=== PATIENT | female | born 1995 | race Caucasian/White ===

== ENCOUNTER 2017-10-02 14:46 | Emergency (ER) | payer BC ==
--- NOTE | 2017-10-02 15:18 | EDM.PDOC ---
ED HPI GENERAL MEDICAL PROBLEM - General Chief Complaint: CLIENT STRATEGIST Problem Stated Complaint: BLEEDING WITH Time Seen by Provider: 10/02/17 15:01 - History of Present Illness INITIAL COMMENTS - FREE TEXT/NARRATIVE: HISTORY AND PHYSICAL: History of present illness: The patient is a 21-year-old female who presents with a ten-day history of cramping and intermittent vaginal bleeding which she thought was a period that was coming back early, but she took a home test today and it was positive and she is concerned. The patient is never been before and her last regular period was September 03, which if she is , would put her at 4 weeks gestational age. She has had ovarian cysts in the past but never had any or GI surgical history. Patient has been having unprotected sex. Patient says she has felt run down for the last 4 weeks and has intermittent nausea but no vomiting or diarrhea. No upper abdominal pain and her cramping does not localize right or left. She says she does get painful heavy periods, so initially she was not concerned about these symptoms. The patient has been urinating normally and has no flank pain and has been eating and drinking normally. Review of systems: As per history of present illness and below otherwise all systems reviewed and negative. Past medical history: As per history of present illness and as reviewed below otherwise noncontributory. Surgical history: As per history of present illness and as reviewed below otherwise noncontributory. Social history: No reported history of drug or alcohol abuse. Family history: As per history of present illness and as reviewed below otherwise noncontributory. Physical exam: : Well-developed, well-nourished female who is nontoxic and vital signs are noted by me HEENT: Atraumatic, normocephalic, negative for conjunctival pallor or scleral icterus, mucous membranes moist, throat clear, neck supple, nontender, trachea midline. Lungs: Clear to auscultation, breath sounds equal bilaterally, chest nontender. Heart: S1S2, regular, negative for clicks, rubs, or JVD. Abdomen: Soft, nondistended, nontender. Negative for masses or hepatosplenomegaly. NABS Pelvis: Stable nontender. Genitourinary: Deferred. Rectal: Deferred. Extremities: Atraumatic, negative for cords or calf pain. Neurovascular unremarkable. Neuro: Awake, alert, oriented. Cranial nerves II through XII unremarkable. Cerebellum unremarkable. Motor and sensory unremarkable throughout. Exam nonfocal. Diagnostics: CBC serum quantitative hCG UA ABO Rh pelvic ultrasound progesterone level Therapeutics: The patient is aware that we are awaiting ultrasound results and when I spoke with her about vaginal bleeding since she has been here and prior to that. She says she is not having anything but a teeny bit of brown blood on her tampon. I did discuss with her tampons would no longer be acceptable going forward. as She is . 182: Case was discussed with Dr. Mae as the patient has an appointment tomorrow at the clinic at 1245. She agrees with close follow-up in the clinic and that the ultrasound findings may may just indicate fluid from ovulation rather than blood. She is aware of all lab tests and she is also aware that the patient is having no bleeding currently and no discomfort. He requested that I added a progesterone level to the patient's lab so that she will have that tomorrow for her appointment. I strongly advised the patient that if she starts having any pain, bleeding, or any concerns that she return to the ER. She was advised to keep her appointment tomorrow at 1245 and we discussed the testing results and she states understanding of the need to follow the serum quantitative hCG and ultrasound with her provider at [facility] until this declares itself. Impression: threatened , early Definitive disposition and diagnosis as appropriate pending reevaluation and review of above. - Related Data Allergies Allergy/AdvReac Type Severity Reaction Status Date / Time No Known Allergies Allergy Verified 10/02/17 15:05 Home Meds: Home Meds . [No Known Home Meds] 10/02/17 [History] Past Medical History - Past Health History Medical/Surgical History: Denies Medical/Surgical History - Infectious Disease History Infectious Disease History: Reports: Chicken Pox - Past Surgical History Musculoskeletal Surgical History: Reports: Other (See Below) Other Musculoskeletal Surgeries/Procedures:: Elbow Social & Family History - Family History Family Medical History: Unobtainable - Tobacco Use Smoking Status *Q: Never Smoker Second Hand Smoke Exposure: No - Caffeine Use Caffeine Use: Reports: Coffee, Tea - Recreational Drug Use Recreational Drug Use: No ED ROS GENERAL - Review of Systems Review Of Systems: ROS reveals no pertinent complaints other than HPI. ED EXAM, GENERAL - Physical Exam Exam: See Below (see Dictation) Course - Vital Signs Last Recorded V/S: Last Vital Signs Temp 36.4 C 10/02/17 15:02 Pulse 91 10/02/17 15:02 Resp 16 10/02/17 15:02 BP 115/75 10/02/17 15:02 Pulse Ox 99 10/02/17 15:02 - Orders/Labs/Meds Orders: Active Orders 24 hr Category Date Time Status OB 1st Tri Sgl 1st Gest [US] Stat Exams 10/02/17 17:11 Taken PROGESTERONE [CHEM] Stat Lab 10/02/17 18:32 Ordered UA W/MICROSCOPIC [URIN] Stat Lab 10/02/17 16:15 Ordered Labs: Laboratory Tests 10/02/17 10/02/17 10/02/17 Range/Units 15:25 15:25 15:25 WBC 8.51 (4.0-11.0) K/uL RBC 4.32 (4.30-5.90) M/uL Hgb 13.7 (12.0-16.0) g/dL Hct 39.8 (36.0-46.0) % MCV 92.1 (80.0-98.0) fL MCH 31.7 (27.0-32.0) pg MCHC 34.4 (31.0-37.0) g/dL RDW Std Deviation 42.9 (28.0-62.0) fl RDW Coeff of Anatoliy 13 (11.0-15.0) % Plt Count 219 (150-400) K/uL MPV 9.90 (7.40-12.00) fL Neut % (Auto) 60.1 (48.0-80.0) % Lymph % (Auto) 24.4 (16.0-40.0) % [place] % (Auto) 8.6 (0.0-15.0) % Eos % (Auto) 6.3 (0.0-7.0) % Baso % (Auto) 0.6 (0.0-1.5) % Neut # (Auto) 5.1 (1.4-5.7) K/uL Lymph # (Auto) 2.1 (0.6-2.4) K/uL [place] # (Auto) 0.7 (0.0-0.8) K/uL Eos # (Auto) 0.5 (0.0-0.7) K/uL Baso # (Auto) 0.1 (0.0-0.1) K/uL Nucleated RBC % 0.0 /100WBC Nucleated RBCs # 0 K/uL HCG, Quant 1184.0 mIU/mL Urine Color Urine Appearance Urine pH (5.0-8.0) Ur Specific [place] (1.001-1.035) Urine Protein (NEGATIVE) mg/dL Urine Glucose (UA) (NEGATIVE) mg/dL Urine Ketones (NEGATIVE) mg/dL Urine Occult Blood (NEGATIVE) Urine Nitrite (NEGATIVE) Urine Bilirubin (NEGATIVE) Urine Urobilinogen (<2.0) EU/dL Ur Leukocyte Esterase (NEGATIVE) Urine RBC (0-2/HPF) Urine WBC (0-5/HPF) Ur Epithelial Cells (NONE-FEW) Urine Bacteria (NEGATIVE) Blood Type B POSITIVE 10/02/17 Range/Units 16:15 WBC (4.0-11.0) K/uL RBC (4.30-5.90) M/uL Hgb (12.0-16.0) g/dL Hct (36.0-46.0) % MCV (80.0-98.0) fL MCH (27.0-32.0) pg MCHC (31.0-37.0) g/dL RDW Std Deviation (28.0-62.0) fl RDW Coeff of Anatoliy (11.0-15.0) % Plt Count (150-400) K/uL MPV (7.40-12.00) fL Neut % (Auto) (48.0-80.0) % Lymph % (Auto) (16.0-40.0) % [place] % (Auto) (0.0-15.0) % Eos % (Auto) (0.0-7.0) % Baso % (Auto) (0.0-1.5) % Neut # (Auto) (1.4-5.7) K/uL Lymph # (Auto) (0.6-2.4) K/uL [place] # (Auto) (0.0-0.8) K/uL Eos # (Auto) (0.0-0.7) K/uL Baso # (Auto) (0.0-0.1) K/uL Nucleated RBC % /100WBC Nucleated RBCs # K/uL HCG, Quant mIU/mL Urine Color YELLOW Urine Appearance CLEAR Urine pH 7.0 (5.0-8.0) Ur Specific [place] <= 1.005 (1.001-1.035) Urine Protein NEGATIVE (NEGATIVE) mg/dL Urine Glucose (UA) NEGATIVE (NEGATIVE) mg/dL Urine Ketones NEGATIVE (NEGATIVE) mg/dL Urine Occult Blood NEGATIVE (NEGATIVE) Urine Nitrite NEGATIVE (NEGATIVE) Urine Bilirubin NEGATIVE (NEGATIVE) Urine Urobilinogen 0.2 (<2.0) EU/dL Ur Leukocyte Esterase NEGATIVE (NEGATIVE) Urine RBC NONE SEEN (0-2/HPF) Urine WBC 0-1 (0-5/HPF) Ur Epithelial Cells RARE (NONE-FEW) Urine Bacteria RARE (NEGATIVE) Blood Type Departure - Departure Time of Disposition: 18:40 Disposition: Home, Self-Care 01 Condition: Good Clinical Impression: Threatened - Discharge Information Referrals: PCP,None [Primary Care Provider] - Forms: ED Department Discharge Additional Instructions: The following information is given to patients seen in the emergency department who are being discharged to home. This information is to outline your options for follow-up care. We provide all patients seen in our emergency department with a follow-up referral. The need for follow-up, as well as the timing and circumstances, are variable depending upon the specifics of your emergency department visit. If you don't have a primary care physician on staff, we will provide you with a referral. We always advise you to contact your personal physician following an emergency department visit to inform them of the circumstance of the visit and for follow-up with them and/or the need for any referrals to a consulting specialist. The emergency department will also refer you to a specialist when appropriate. This referral assures that you have the opportunity for followup care with a specialist. All of these measure are taken in an effort to provide you with optimal care, which includes your followup. Under all circumstances we always encourage you to contact your private physician who remains a resource for coordinating your care. When calling for followup care, please make the office aware that this follow-up is from your recent emergency room visit. If for any reason you are refused follow-up, please contact the emergency department at and ask to speak to the emergency department charge nurse. [facility] [address] [place] [id number] Push hydration and rest as much as possible. Nothing in vagina and strict pelvic rest as we discussed until you are cleared by the OB MG. Please keep your appointment tomorrow in the clinic at 1245 and return to ER as needed and as we discussed - My Orders Last 24 Hours: My Active Orders 10/02/17 16:15 UA W/MICROSCOPIC [URIN] Stat 10/02/17 17:11 OB 1st Tri Sgl 1st Gest [US] Stat 10/02/17 18:32 PROGESTERONE [CHEM] Stat - Assessment/Plan Last 24 Hours: My Active Orders 10/02/17 16:15 UA W/MICROSCOPIC [URIN] Stat 10/02/17 17:11 OB 1st Tri Sgl 1st Gest [US] Stat 10/02/17 18:32 PROGESTERONE [CHEM] Stat
--- NOTE | 2017-10-03 13:32 | US ---
EXAM DATE: 10/02/17 PATIENT'S AGE: 21 Patient: AMARI QUINTANA Facility: [place], [place] Site . Site : 1995 Study: US OB Pelvis [id number] 5:43:46 PM Ordering Physician: Clinton Paz Final Report: INDICATION: Positive test with abdominal pain and vaginal bleeding TECHNIQUE: Ultrasound OB pelvis transvaginal. Real-time griffith-scale imaging of the pelvis was performed. COMPARISON: None FINDINGS: Uterus and endometrium are unremarkable. No sign of intrauterine . No ovarian or adnexal mass. However, there is a moderate amount of free fluid which is relatively dense suggesting the possibility of blood products. IMPRESSION: No intrauterine or ectopic visualized. However, there is a moderate amount of free fluid which appears relatively dense suggesting the possibility of blood products. Close observation and possible follow-up ultrasound should be considered if there is ongoing concern for a ruptured ectopic . Remainder of the exam is unremarkable. Dictated by Danny Moreno MD @ Oct 02 2017 6:08PM (Electronic Signature) Report Signed by Proxy. GENA
== END 2017-10-02 18:50 | disposition home or self-care (01) ==
LOC: MW.ED 14:46
DX: O20.0 Threatened abortion (principal)
CPT/HCPCS: 36415; 76801; 76801-26; 81001; 84144; 84702; 85025; 86900; 86901; 99283; 99284-25

== ENCOUNTER 2023-10-04 03:07 | Inpatient (IN) | payer BC ==
[2023-10-04] MEDS: Acetaminophen 500 MG Tab PO ONE (05:34)
[2023-10-04] MEDS ORDERED: Carboprost Tromethamine 250 MCG/1 mL Vial IM PRN (09:57)
[2023-10-04] MEDS ORDERED: Acetaminophen 325 MG Tab PO PRN (09:57)
[2023-10-04] MEDS ORDERED: Sodium Chloride 0.9% 20 ML SDV IV PRN (09:57)
[2023-10-04] MEDS ORDERED: Sodium Chloride 0.9% 10 ML Syringe FLUSH PRN (09:57)
[2023-10-04] MEDS ORDERED: Water For Irrigation,Sterile 1,000 ML Container IRR PRN (09:57)
[2023-10-04] MEDS ORDERED: Ondansetron 4 MG Tab.DIS PO PRN (09:57)
[2023-10-04] MEDS ORDERED: Sodium Chloride 0.9% 2.5 ML Syringe FLUSH PRN (09:57)
[2023-10-04] MEDS ORDERED: Tranexamic Acid IN NACL,ISO-OS 1,000 MG in Premix Bag 1 BAG IV PRN (09:57)
[2023-10-04] MEDS ORDERED: Lidocaine 1% 50 ML MDV INJECT PRN (09:57)
[2023-10-04] MEDS ORDERED: Aluminum Hydroxide/Magnesium Hydroxide/Simethicone XS Susp 30 ML Cup PO PRN (09:57)
[2023-10-04] MEDS ORDERED: Oxytocin/0.9 % Sodium Chloride 30 UNIT/500 ML BAG IV SCH (10:00)
[2023-10-04] MEDS ORDERED: Naloxone 0.4 MG/ML SDV IVPUSH PRN (10:07)
[2023-10-04] MEDS ORDERED: Terbutaline 1 MG/ML SDV SUBCUT PRN (10:16)
[2023-10-04] MEDS: hydrOXYzine HCl 25 MG Tab PO PRN (10:59)
[2023-10-04] MEDS: Misoprostol 25 MCG (1/4 of 100 MCG) Tab PO PRN ×2 (11:01→14:55)
[2023-10-04] MEDS: Morphine 4 MG/ML Syringe IM ONE (11:11)
[2023-10-04 11:33] LABS: HEMATOCRIT 36.8 % (37.0-47.0); MEAN CORPUSCULAR HGB CONC 35.3 g/dL (32.0-36.0); MEAN CORPUSCULAR VOLUME 90.6 fL (83.0-99.0); MEAN PLATELET VOLUME 10.2 fL (9.4-12.3); PLATELET COUNT,PLT 195 K/uL (150-400); RED BLOOD CELL COUNT 4.06 M/uL (4.10-5.30); WHITE BLOOD CELL COUNT,WBC 9.79 K/uL (3.9-11.3)
[2023-10-04] MEDS: Misoprostol 25 MCG (1/4 of 100 MCG) Tab PO ONE (15:38)
[2023-10-04] MEDS ORDERED: Morphine 10 MG/ML SDV IM ONE (16:30)
[2023-10-04] MEDS: Morphine 10 MG/ML SDV IM ONE (16:48)
[2023-10-04] MEDS: Misoprostol 50 MCG (1/2 of 100 MCG) Tab PO PRN (20:02)
[2023-10-04] MEDS: Morphine 10 MG/ML SDV IM PRN (22:01)
[2023-10-05] MEDS: Lactated Ringers 1,000 ML IV SCH (00:13)
[2023-10-05] MEDS ORDERED: Ropivacaine HCl/PF 200 ML ONE (00:23)
[2023-10-05] MEDS ORDERED: Phenylephrine HCl In 0.9% NaCl 1 MG/10 ML Syringe ONE (00:23)
[2023-10-05] MEDS ORDERED: Bupivacaine 0.5% 10 ML SDV ONE (00:23)
[2023-10-05] MEDS: Ropivacaine HCl/PF 400 MG in Premix Bag 1 BAG EPIDUR SCH (00:36)
[2023-10-05] MEDS ORDERED: Phenylephrine HCl In 0.9% NaCl 1 MG/10 ML Syringe IVPUSH PRN (00:44)
[2023-10-05] MEDS ORDERED: ePHEDrine 50 MG/ML SDV IVPUSH PRN ×2 (00:44)
[2023-10-05] MEDS: Oxytocin/0.9 % Sodium Chloride 30 UNIT/500 ML BAG IV SCH (04:08)
[2023-10-05] MEDS: FLUoxetine 20 MG Cap PO SCH (09:09)
[2023-10-05] MEDS: Methylergonovine 0.2 MG/1 ML Amp IM PRN (10:49)
[2023-10-05] MEDS: Misoprostol 200 MCG Tab PO PRN (10:51)
[2023-10-05] MEDS ORDERED: Sodium Chloride 0.9% 2.5 ML Syringe FLUSH PRN (11:04)
[2023-10-05] MEDS ORDERED: Sodium Chloride 0.9% 10 ML Syringe FLUSH PRN (11:04)
[2023-10-05] MEDS ORDERED: Sennosides 8.6 MG Tab PO PRN (11:04)
[2023-10-05] MEDS ORDERED: Famotidine 20 MG Tab PO PRN (11:04)
[2023-10-05] MEDS ORDERED: Bisacodyl 10 MG Supp RECTAL PRN (11:04)
[2023-10-05] MEDS ORDERED: diphenhydrAMINE 50 MG Cap PO PRN (11:04)
[2023-10-05] MEDS ORDERED: Aluminum Hydroxide/Magnesium Hydroxide/Simethicone XS Susp 30 ML Cup PO PRN (11:04)
[2023-10-05] MEDS ORDERED: Simethicone 80 MG Tab.Chew PO PRN (11:04)
[2023-10-05] MEDS ORDERED: Docusate Sodium 100 MG Cap PO PRN (11:04)
[2023-10-05] MEDS ORDERED: Ondansetron 4 MG/2 ML SDV IVPUSH PRN (11:04)
[2023-10-05] MEDS: Benzocaine/Menthol 20%-0.5% Spray 78 GM Cannister TOP PRN (13:23)
[2023-10-05] MEDS: Lanolin 100% Cream 7 GM Tube TOP PRN (13:23)
[2023-10-05] MEDS: Ibuprofen 800 MG Tab PO PRN (13:24)
[2023-10-05] MEDS: Witch Hazel Medicated Pads 40/Jar TOP PRN (13:24)
[2023-10-05] MEDS: Acetaminophen 500 MG Tab PO PRN (13:25)
[2023-10-05] MEDS ORDERED: Misoprostol 200 MCG Tab RECTAL PRN (18:28)
[2023-10-06 06:14] LABS: HEMATOCRIT 32.1 % (37.0-47.0)
== END 2023-10-07 11:33 | disposition home or self-care (01) | DRG 560 ==
LOC: MW.OBCHECK 03:07 → MW.OB 03:09 → MW.OBCHECK 09:29 → MW.OB 09:30 → OBSVTOIN 10-05 10:32 → MW.OB 10-05 16:59
PROVIDERS: ADMIT Obstetrics & Gynecology; ATTEND Obstetrics & Gynecology
PROC: 10E0XZZ Delivery of Products of Conception, External Approach (ICD-10-PCS; principal; 2023-10-05)
PROC: 3E033VJ Introduction of Other Hormone into Peripheral Vein, Percutaneous Approach (ICD-10-PCS; 2023-10-05)
PROC: 3E0P7VZ Introduction of Hormone into Female Reproductive, Via Natural or Artificial Opening (ICD-10-PCS; 2023-10-05)
PROC: 0KQM0ZZ Repair Perineum Muscle, Open Approach (ICD-10-PCS; 2023-10-05)
PROC: 3E0R3BZ Introduction of Anesthetic Agent into Spinal Canal, Percutaneous Approach (ICD-10-PCS; 2023-10-05)
PROC: 00HU33Z Insertion of Infusion Device into Spinal Canal, Percutaneous Approach (ICD-10-PCS; 2023-10-05)
DX: O48.0 Post-term pregnancy (principal); O99.344 Other mental disorders complicating childbirth; F41.9 Anxiety disorder, unspecified; O70.1 Second degree perineal laceration during delivery; O69.81X0 Labor and delivery complicated by cord around neck, without compression, not applicable or unspecified; Z37.0 Single live birth; O99.214 Obesity complicating childbirth; Z3A.40 40 weeks gestation of pregnancy; Z98.890 Other specified postprocedural states; Z87.891 Personal history of nicotine dependence
CPT/HCPCS: 01967; 36415; 51702; 59025; 59409; 85014; 85018; 85027; 86592; 86850; 86900; 86901; A9270-GY; J0665; J2210; J2270; J2371; J2590; J2795; J7120

== ENCOUNTER 2024-07-05 12:56 | Emergency (ER) | payer BC ==
[2024-07-05] MEDS: Sodium Chloride 0.9% 2.5 ML Syringe FLUSH PRN (14:00)
[2024-07-05] MEDS: Ondansetron 4 MG/2 ML SDV IVPUSH STA (14:00)
[2024-07-05] MEDS: Sodium Chloride 0.9% 10 ML Syringe FLUSH PRN (14:01)
[2024-07-05] MEDS: Morphine 4 MG/ML Syringe IVPUSH STA (14:01)
[2024-07-05 14:12] LABS: BASOPHILS ABSOLUTE AUTO 0.04 K/uL (0.00-0.20); BASOPHILS PERCENT AUTO 0.3 % (0.0-1.0); EOSINOPHILS ABSOLUTE AUTO 0.13 K/uL (0.00-0.45); HEMATOCRIT 38.7 % (37.0-47.0); HEMOGLOBIN 13.4 g/dL (12.0-16.0); IMMATURE GRAN ABSOLUTE AUTO 0.06 K/uL (0.00-0.05); IMMATURE GRAN PERCENT AUTO 0.5 % (0.0-0.4); LYMPHOCYTES ABSOLUTE AUTO 2.24 K/uL (1.00-4.80); LYMPHOCYTES PERCENT AUTO 17.7 % (24.0-44.0); MEAN CORPUSCULAR HEMOGLOBIN 30.6 pg (28.0-32.0); MEAN CORPUSCULAR HGB CONC 34.6 g/dL (32.0-36.0); MEAN CORPUSCULAR VOLUME 88.4 fL (83.0-99.0); MEAN PLATELET VOLUME 9.9 fL (9.4-12.3); MONOCYTES ABSOLUTE AUTO 0.81 K/uL (0.00-0.80); MONOCYTES PERCENT AUTO 6.4 % (0.0-8.0); NEUTROPHILS PERCENT AUTO 74.1 % (41.0-71.0); PLATELET COUNT,PLT 252 K/uL (150-400); RED BLOOD CELL COUNT 4.38 M/uL (4.10-5.30); WHITE BLOOD CELL COUNT,WBC 12.68 K/uL (3.9-11.3)
[2024-07-05 14:42] LABS: ALBUMIN 3.5 g/dL (3.4-5.0); BILIRUBIN TOTAL 0.3 mg/dL (0.2-1.0); CARBON DIOXIDE,CO2 25.5 mmol/L (21.0-32.0); CREATININE 0.7 mg/dL (0.6-1.0); EST CRCL DRUG DOSING (CG) 105.74 mL/min; POTASSIUM,K 3.8 mmol/L (3.5-5.1)
[2024-07-05 14:57] LABS: APPEARANCE,URINE CLEAR; BILIRUBIN,URINE NEGATIVE (NEGATIVE); COLOR,URINE YELLOW; GLUCOSE,URINE NEGATIVE (NEGATIVE); KETONES,URINE TRACE mg/dL (NEGATIVE); LEUKOCYTE ESTERASE,URINE NEGATIVE (NEGATIVE); NITRITE,URINE NEGATIVE (NEGATIVE); OCCULT BLOOD,URINE NEGATIVE (NEGATIVE); PH,URINE 7.5 (5.0-8.0); PROTEIN,URINE NEGATIVE (NEGATIVE); UROBILINOGEN,URINE 0.2 EU/dL (<2.0)
[2024-07-05] MEDS: Iopamidol 755 MG/ML 500 ML Multipack Bottle IVPUSH STA (15:17)
[2024-07-05] MEDS: oxyCODONE 5 MG Tab PO STA (16:33)
== END 2024-07-05 16:35 | disposition home or self-care (01) ==
LOC: MW.ED 12:56
DX: K42.9 Umbilical hernia without obstruction or gangrene (principal); Z79.899 Other long term (current) drug therapy; Z75.8 Other problems related to medical facilities and other health care
CPT/HCPCS: 36415; 74177; 80053; 81003; 83690; 84703; 85025; 96374; 96375; 99284; A9270; J2270; J2405; Q9967; J3490

== ENCOUNTER 2024-08-10 06:44 | Day surgery (SDC) | payer BC ==
[~2024-08-10 06:44] MED LIST: Sodium Chloride 0.9% 10 ML Syringe FLUSH PRN; Sodium Chloride 0.9% 2.5 ML Syringe FLUSH PRN; Sodium Chloride 0.9% 20 ML SDV IV PRN; ceFAZolin 2 GM in Sodium Chloride 0.9% 50 ML IV ONE
[2024-08-10] MEDS ORDERED: Albuterol 0.083% 2.5 MG/3 ML Neb Soln NEB PRN (07:00)
[2024-08-10] MEDS ORDERED: Phenylephrine HCl In 0.9% NaCl 1 MG/10 ML Syringe IVPUSH PRN (07:00)
[2024-08-10] MEDS ORDERED: Morphine 2 MG/ML SYRINGE IVPUSH PRN (07:00)
[2024-08-10] MEDS ORDERED: Metoclopramide 10 MG/2 ML SDV IVPUSH PRN (07:00)
[2024-08-10] MEDS ORDERED: Scopalamine 1mg/3day Transdermal Patch TOP ONE (07:00)
[2024-08-10] MEDS ORDERED: HYDROmorphone 1 MG/ML Syringe IVPUSH PRN (07:00)
[2024-08-10] MEDS ORDERED: fentaNYL 50 MCG/ML SDV IVPUSH PRN (07:00)
[2024-08-10] MEDS ORDERED: Ondansetron 4 MG/2 ML SDV IVPUSH PRN (07:00)
[2024-08-10] MEDS ORDERED: Naloxone 0.4 MG/ML SDV IVPUSH PRN (07:00)
[2024-08-10] MEDS ORDERED: Bupivacaine 0.5% 30 ML SDV ONE (07:09)
[2024-08-10] MEDS ORDERED: propofoL 500 MG/50 ML 50 ML ONE (07:20)
[2024-08-10] MEDS: Lactated Ringers 1,000 ML IV SCH (07:21)
[2024-08-10] MEDS ORDERED: Propofol 200 MG/20 ML SDV ONE (07:23)
[2024-08-10] MEDS ORDERED: Sodium Chloride 0.9% 20 ML ONE (07:24)
[2024-08-10] MEDS ORDERED: dexmedeTOMIDine HCl 200 MCG/2 ML SDV ONE (07:24)
[2024-08-10] MEDS ORDERED: fentaNYL 100 MCG/2 ML SDV ONE (07:24)
[2024-08-10] MEDS ORDERED: Bupivacaine 0.25% 30 ML SDV ONE (07:28)
[2024-08-10] MEDS ORDERED: ceFAZolin 2 GM Vial ONE (08:01)
[2024-08-10] MEDS ORDERED: Dexamethasone 4 MG/ML 5 ML MDV ONE (08:11)
[2024-08-10] MEDS ORDERED: Ondansetron 4 MG/2 ML SDV ONE (08:11)
[2024-08-10] MEDS ORDERED: Ketorolac 30 MG/ML SDV ONE (08:13)
== END 2024-08-10 09:55 | disposition home or self-care (01) ==
LOC: MW.SDS 06:44
PROVIDERS: ATTEND Surgery
DX: K42.9 Umbilical hernia without obstruction or gangrene (principal); Z79.899 Other long term (current) drug therapy
CPT/HCPCS: 49591; 64488; 81025; J0131; J0665; J0690; J1100; J1885; J2405; J2704; J3010; J7120; 00790; 64486; J3490